=== PATIENT | female | born 1940 | race Caucasian/White ===

== ENCOUNTER 2016-09-02 11:29 | Day surgery (SDC) | payer MEDICARE ==
[~2016-09-02 11:29] MED LIST: ACCU40TA10 PO; CALCCHW25 PO; CHLO50TA PO; DRON400 PO; OSTETAB3 PO; PRAD150C PO; SIMV10TA PO; TAB-TAB PO
[2016-09-02] MEDS ORDERED: CHLOROTHALIDONE PO (12:27)
[2016-09-02] MEDS ORDERED: MULT1TAB84 PO (12:27)
[2016-09-02] MEDS ORDERED: QUIN40TA2 PO (12:27)
[2016-09-02] MEDS ORDERED: VITA100064 PO (12:27)
[2016-09-02] MEDS ORDERED: SIMV10TA PO (12:27)
[2016-09-02] MEDS ORDERED: PRAD150C PO (12:27)
[2016-09-02] MEDS ORDERED: AMIO200T PO (12:27)
--- NOTE | 2016-09-03 10:48 | EKG ---
Date Performed: 09/02/2016 Time Performed: 12:12:02 PTAGE: 75 years EKG: Atrial fibrillation Inferior T wave changes are nonspecific T-wave is no longer flat compar ed to prior tracing Abnormal ECG PREVIOUS TRACING : 10/27/2015 02.53 DOCTOR: Alex Foster Interpretating Date/Time 09/03/2016 10:45:11
--- NOTE | 2016-09-03 10:49 | EKG ---
Date Performed: 09/02/2016 Time Performed: 13:29:16 PTAGE: 75 years EKG: Sinus bradycardia with sinus arrhythmia Anterior T wave changes are nonspecific Compared to the previous tracing, patient no longer in atrial fibrillation Borderline ECG PREVIOUS TRACING : 09/02/2016 12.12 DOCTOR: Alex Foster Interpretating Date/Time 09/03/2016 10:45:27
--- NOTE | 2016-09-05 05:31 | MR ---
cc: YAAKOV MONSIVAIS MD DATE 09/02/2016 INDICATION: Atrial fibrillation. PROCEDURE PERFORMED: DC cardioversion. PROCEDURE: After the patient was sedated by Anesthesia, 200 and 360-joule shocks were delivered that converted the patient into sinus rhythm. The patient remained stable and was discharged home in stable condition. DIAGNOSIS: Successful cardioversion of atrial fibrillation. DISPOSITION: Ms. Hall will continue on her current medical program including atrial fibrillation. I will see her back for followup in our office after discharge. Yaakov Monsivais MD OQ/SSB /1:27 PM /5:25 AM MTDD
== END 2016-09-02 14:23 | disposition home or self-care (01) ==
LOC: HDOC 11:29 → HDIC 11:30 → HDOC 14:23
PROVIDERS: ATTEND Internal Medicine Interventional Cardiology
DX: I48.0 Paroxysmal atrial fibrillation (principal); I49.5 Sick sinus syndrome; I10 Essential (primary) hypertension
CPT/HCPCS: 92960; 93005

== ENCOUNTER 2017-02-24 11:56 | Emergency (ER) | payer MEDICARE ==
[~2017-02-24] VITALS: Ht 162.6 cm; Wt 86.0 kg
[~2017-02-24 11:56] MED LIST changes: -ACCU40TA10 PO; +AMIO200T PO; -CALCCHW25 PO; -CHLO50TA PO; +CHLOROTHALIDONE PO; -DRON400 PO; +MULT1TAB84 PO; -OSTETAB3 PO; +QUIN40TA2 PO; -TAB-TAB PO; +VITA100064 PO
[2017-02-24 11:58] VITALS: BP 155/121; PULSE 136; RESP 24; O2SAT 96
--- NOTE | 2017-02-24 12:06 | PD ---
Physical Exam Time Seen by Provider: 12:04 Narrative 76 y/o female here with one hour of sudden onset lower chest pain that radiates into the back, sharp, resolved a few minutes ago. On pradaxa for atrial fibrillation. On metoprolol. Vital signs reviewed, tachycardic. Seen at triage desk. Awaiting bed placement. Data Data Last Documented VS Vital Signs Date Time Temp Pulse Resp B/P Pulse Ox O2 Delivery O2 Flow Rate FiO2 02/24/17 11:58 136 24 155/121 96 Room Air [facility] Medical Record Reviewed: Yes Supervised Visit with JUANITA: Shukri Deal Feb 24, 2017 12:05
[2017-02-24] MEDS ORDERED: MULTTAB67 PO (12:15)
[2017-02-24] MEDS ORDERED: SODIUM CHLORIDE 0.9% FLUSH 10 ML FLUSH IVF PRN (12:30)
[2017-02-24 12:35] VITALS: BP_SYST 147; BP_SYST 154; BP_DIAS 80; BP_DIAS 92; PULSE 102; RESP 16; O2SAT 98
--- NOTE | 2017-02-24 12:42 | PD ---
HPI Chief Complaint: Chest Pain Time Seen by Provider: 12:42 Travel History International Travel<30 days: No Contact w/Intl Traveler<30days: No Traveled to known affect area: No History of Present Illness HPI 76-year-old female with history of A. fib presents to emergency department for evaluation of acute onset left-sided chest pain. This lasted approximately 15 minutes and resolved on its own. Patient states she took 2 aspirins and contacted her die maker apprentice to advise she come to the emergency department. Patient denies any abscesses or diaphoresis or shortness of breath. No sensation of lightheadedness. States she has never had a pain like this in the past. She is currently having no pain. She has no other symptoms to report. PFSH Past Medical History Hx Anticoagulant Therapy: Yes (pradaxa) Atrial Fibrillation: Yes (X3 CARDIOVERSIONS) Cancer: Yes (ADRIENNE CELL) Cardiovascular Problems: Yes (htn,afib, ablation) Hypertension: Yes Respiratory: Yes (copd) Integumentary: Yes (SKIN CA) Radiation Therapy: Yes Tetanus Vaccination: < 5 Years Influenza Vaccination: Yes ?: Not Past Surgical History Appendectomy: Yes Cholecystectomy: Yes Joint Replacement: Yes (LEFT HIP) Thoracic Surgery: No Other Surgery: Yes Social History Alcohol Use: Yes (RARE) Tobacco Use: No Substance Use: No (PT DENIES) Allergies-Medications (Allergen,Severity, Reaction): Coded Allergies: Amoxicillin (Verified Allergy, Severe, RASH, 02/24/17) Contrast Media (Verified Allergy, Severe, RASH, 02/24/17) Vibramycin (Verified Allergy, Severe, RASH, 02/24/17) Xarelto (Verified Allergy, Severe, swelling, 02/24/17) Reported Meds & Prescriptions Reported Meds & Active Scripts Active Reported Multiple Vitamin 1 Tab 1 Tab PO DAILY Vitamin D (Cholecalciferol) 1,000 Unit Tab 1,000 Units PO DAILY Simvastatin 10 Mg Tab 10 Mg PO DAILY Amiodarone (Amiodarone HCl) 200 Mg Tab 200 Mg PO DAILY Pradaxa (Dabigatran) 150 Mg Cap 150 Mg PO BID Review of Systems Except as stated in HPI: all other systems reviewed are Neg Physical Exam Narrative GENERAL: Well-nourished female patient in no acute distress SKIN: Focused skin assessment warm/dry. HEAD: Atraumatic. Normocephalic. EYES: Pupils equal and round. No scleral icterus. No injection or drainage. ENT: No nasal bleeding or discharge. Mucous membranes pink and moist. NECK: Trachea midline. No JVD. CARDIOVASCULAR: Tachycardic, irregular rhythm No murmur appreciated. RESPIRATORY: No accessory muscle use. Clear to auscultation. Breath sounds equal bilaterally. GASTROINTESTINAL: Abdomen soft, non-tender, nondistended. Hepatic and splenic margins not palpable. MUSCULOSKELETAL: No obvious deformities. No clubbing. No cyanosis. No edema. NEUROLOGICAL: Awake and alert. No obvious cranial nerve deficits. Motor grossly within normal limits. Normal speech. PSYCHIATRIC: Appropriate mood and affect; insight and judgment normal. Data Data Last Documented VS Vital Signs Date Time Temp Pulse Resp B/P Pulse Ox O2 Delivery O2 Flow Rate FiO2 02/24/17 15:10 97.7 87 16 140/86 99 02/24/17 14:26 Room Air Orders Electrocardiogram (02/24/17 12:23) Basic Metabolic Panel (Bmp) (02/24/17 12:23) B-Type Natriuretic Peptide (02/24/17 12:23) Ckmb (Isoenzyme) Profile (02/24/17 12:23) Complete Blood Count With Diff (02/24/17 12:) Magnesium (Mg) (02/24/17 12:23) Prothrombin Time / Inr (Pt) (02/24/17 12:) Act Partial Throm Time (Ptt) (02/24/17 12:23) Troponin I (02/24/17 12:23) Chest, Single Ap (02/24/17 12:23) Ecg Monitoring (02/24/17 12:23) Bilateral Bp Monitoring (02/24/17 12:23) Iv Access Insert/Monitor (02/24/17 12:) Oximetry (02/24/17 12:23) Oxygen Administration (02/24/17 12:23) Sodium Chloride 0.9% Flush (Ns Flush) (02/24/17 12:30) Labs Laboratory Tests Test 02/24/17 12:35 White Blood Count 11.5 TH/MM3 Red Blood Count 4.87 MIL/MM3 Hemoglobin 14.0 GM/DL Hematocrit 42.7 % Mean Corpuscular Volume 87.7 FL Mean Corpuscular Hemoglobin 28.7 PG Mean Corpuscular Hemoglobin 32.7 % Concent Red Cell Distribution Width 12.8 % Platelet Count 288 TH/MM3 Mean Platelet Volume 8.7 FL Neutrophils (%) (Auto) 75.0 % Lymphocytes (%) (Auto) 14.8 % Monocytes (%) (Auto) 8.2 % Eosinophils (%) (Auto) 1.1 % Basophils (%) (Auto) 0.9 % Neutrophils # (Auto) 8.6 TH/MM3 Lymphocytes # (Auto) 1.7 TH/MM3 Monocytes # (Auto) 0.9 TH/MM3 Eosinophils # (Auto) 0.1 TH/MM3 Basophils # (Auto) 0.1 TH/MM3 CBC Comment DIFF FINAL Differential Comment Prothrombin Time 12.0 SEC Prothromb Time International 1.1 RATIO Ratio Activated Partial 36.0 SEC Thromboplast Time Sodium Level 140 MEQ/L Potassium Level 3.4 MEQ/L Chloride Level 101 MEQ/L Carbon Dioxide Level 32.9 MEQ/L Anion Gap 6 MEQ/L Blood Urea Nitrogen 24 MG/DL Creatinine 0.90 MG/DL Estimat Glomerular Filtration 61 ML/MIN Rate Random Glucose 85 MG/DL Calcium Level 9.0 MG/DL Magnesium Level 2.0 MG/DL Total Creatine Kinase 46 U/L Troponin I LESS THAN 0.02 NG/ML MDM Medical Decision Making Medical Screen Exam Complete: Yes Emergency Medical Condition: Yes Medical Record Reviewed: Yes Differential Diagnosis A. fib with RVR versus ACS versus chest wall pain versus pleuritic pain Narrative Course 76-year-old female presents to emergency department for evaluation of acute onset left-sided chest pain, 15 minute duration, that resolved on its own. Patient appears without distress. She is currently pain-free. EKG is reviewed by my attending physician with no ST elevation or depression. Patient is in A. fib. She is on Pradaxa Laboratory Tests Test 02/24/17 12:35 White Blood Count 11.5 TH/MM3 Red Blood Count 4.87 MIL/MM3 Hemoglobin 14.0 GM/DL Hematocrit 42.7 % Mean Corpuscular Volume 87.7 FL Mean Corpuscular Hemoglobin 28.7 PG Mean Corpuscular Hemoglobin 32.7 % Concent Red Cell Distribution Width 12.8 % Platelet Count 288 TH/MM3 Mean Platelet Volume 8.7 FL Neutrophils (%) (Auto) 75.0 % Lymphocytes (%) (Auto) 14.8 % Monocytes (%) (Auto) 8.2 % Eosinophils (%) (Auto) 1.1 % Basophils (%) (Auto) 0.9 % Neutrophils # (Auto) 8.6 TH/MM3 Lymphocytes # (Auto) 1.7 TH/MM3 Monocytes # (Auto) 0.9 TH/MM3 Eosinophils # (Auto) 0.1 TH/MM3 Basophils # (Auto) 0.1 TH/MM3 CBC Comment DIFF FINAL Differential Comment Prothrombin Time 12.0 SEC Prothromb Time International 1.1 RATIO Ratio Activated Partial 36.0 SEC Thromboplast Time Sodium Level 140 MEQ/L Potassium Level 3.4 MEQ/L Chloride Level 101 MEQ/L Carbon Dioxide Level 32.9 MEQ/L Anion Gap 6 MEQ/L Blood Urea Nitrogen 24 MG/DL Creatinine 0.90 MG/DL Estimat Glomerular Filtration 61 ML/MIN Rate Random Glucose 85 MG/DL Calcium Level 9.0 MG/DL Magnesium Level 2.0 MG/DL Total Creatine Kinase 46 U/L Troponin I LESS THAN 0.02 NG/ML I have reviewed the labs and discuss them with Dr. Daily who is covering for Dr. owen. He recommends the patient be discharged home for follow up this week in the office. This is discussed with the patient and she is in agreement with this plan of care. She agrees to return immediately with any acute worsening of symptoms. Diagnosis Primary Impression: Chest pain Qualified Code: R07.9 - Chest pain, unspecified type Additional Impression: A-fib Qualified Code: I48.2 - Chronic atrial fibrillation Referrals: Allison Daily MD Trimming Press Operator Primary Care Physician call for appointment Patient Instructions: Chest Pain (ED), General Instructions Additional Instructions: Contact your die maker apprentice office for follow-up this week. Return immediately with any acute worsening of symptoms Med/Other Pt SpecificInfo: No Change to Meds Disposition: 01 DISCHARGE HOME Condition: Stable Radha Krishnamurthy Feb 24, 2017 12:42
--- NOTE | 2017-02-24 12:47 | RADRPT ---
EXAM DATE/TIME: 02/24/2017 12:20 [facility] COMPARISON: CHEST SINGLE AP, October 26, 2015, 23:21. INDICATIONS : Chest pain, short of breath.. MEDICAL HISTORY : Chronic obstructive pulmonary disease. atrial fibrillation. SURGICAL HISTORY : None. ENCOUNTER: Initial ACUITY: 1 day PAIN SCORE: 8/10 LOCATION: Bilateral chest FINDINGS: Mild basilar infiltrates and slight blunting of the chest phrenic angles indicating small effusions. Ectatic for rotation, cardiac contours are grossly satisfactory with heart size at upper limits of no rmal. CONCLUSION: Small basilar infiltrates and effusions. Ronak Klein MD on February 24, 2017 at 12:45 Board Certified Radiologist. This report was verified electronically.
[2017-02-24 13:21] LABS: AUTOMATED NEUTROPHIL # 8.6 TH/MM3 (1.8-7.7); BASOPHIL # 0.1 TH/MM3 (0-0.2); BASOPHIL % 0.9 % (0.0-2.0); EOSINOPHIL # 0.1 TH/MM3 (0-0.4); EOSINOPHIL % 1.1 % (0.0-4.0); HEMATOCRIT 42.7 % (35.0-46.0); HEMO FLAGS DIFF FINAL; LYMPH % 14.8 % (9.0-44.0); LYMPHOCYTE # 1.7 TH/MM3 (1.0-4.8); MEAN CELL VOLUME 87.7 FL (80.0-100.0); MEAN CORPUSCULAR HEMOGLOBIN 28.7 PG (27.0-34.0); MEAN CORPUSCULAR HGB CONC 32.7 % (32.0-36.0); MONO % 8.2 % (0.0-8.0); PLATELET COUNT 288 TH/MM3 (150-450); RED BLOOD COUNT 4.87 MIL/MM3 (4.00-5.30); RED CELL DISTRIBUTION WIDTH 12.8 % (11.6-17.2); WHITE BLOOD COUNT 11.5 TH/MM3 (4.0-11.0)
[2017-02-24 13:39] LABS: INTERNATIONAL NORMALIZED RATIO 1.1 RATIO
[2017-02-24 13:42] LABS: ANION GAP 6 MEQ/L (5-15); BICARBONATE 32.9 MEQ/L (21.0-32.0); BLOOD UREA NITROGEN 24 MG/DL (7-18); CHLORIDE 101 MEQ/L (98-107); GLOMERULAR FILTRATION RATE 61 ML/MIN (>89); POTASSIUM 3.4 MEQ/L (3.5-5.1); SODIUM (NA) 140 MEQ/L (136-145)
[2017-02-24 13:47] LABS: CREATINE KINASE 46 U/L (26-192)
[2017-02-24 14:26] VITALS: BP 149/88; PULSE 102; RESP 16; TEMP 97.7; O2SAT 98
[2017-02-24 15:10] VITALS: BP 140/86; TEMP 97.7
--- NOTE | 2017-02-25 10:22 | EKG ---
Date Performed: 02/24/2017 Time Performed: 12:19:49 PTAGE: 76 years EKG: ATRIAL FIBRILLATION NONSPECIFIC T-WAVE ABNORMALITY ABNORMAL RHYTHM ECG PREVIOUS TRACING : 09/02/2016 13.29 Atrial fibrillation is new from the prior tracing. DOCTOR: Alex Foster Interpretating Date/Time 02/25/2017 10:21:18
== END 2017-02-24 15:12 | disposition home or self-care (01) ==
LOC: NEPC 11:56
DX: R07.9 Chest pain, unspecified (principal); I48.91 Unspecified atrial fibrillation; I10 Essential (primary) hypertension; J44.9 Chronic obstructive pulmonary disease, unspecified; R94.31 Abnormal electrocardiogram [ECG] [EKG]; Z79.899 Other long term (current) drug therapy; Z88.8 Allergy status to other drugs, medicaments and biological substances
CPT/HCPCS: 71010; 80048; 82550; 83735; 84484; 85025; 85610; 85730; 93005; 99285

== ENCOUNTER → 2017-08-05 | Outpatient (CLI) | payer MEDICARE ==
[~2017-08-05] MED LIST changes: -CHLOROTHALIDONE PO; -MULT1TAB84 PO; +MULTTAB67 PO; -QUIN40TA2 PO
--- NOTE | 2017-08-05 12:01 | RADRPT ---
EXAM DATE/TIME: 08/05/2017 11:41 This report includes an Addendum and supersedes previous reports for this exam. [facility] COMPARISON: No previous studies available for comparison. INDICATIONS : Cough, dyspnea and wheezing x 2 months. RADIATION DOSE: 3.94 CTDIvol (mGy) MEDICAL HISTORY : Cardiovascular disease. SURGICAL HISTORY : None. ENCOUNTER: Initial ACUITY: 2 months PAIN SCALE: 0/10 LOCATION: Bilateral chest TECHNIQUE: Volumetric scanning of the chest was performed. Using automated exposure control and adjustment of t he mA and/or kV according to patient size, radiation dose was kept as low as reasonably achievable to obtain optimal diagnostic quality images. DICOM format image data is available electronically for r eview and comparison. Follow-up recommendations for detected pulmonary nodules are based at a minimum on nodule size and pa tient risk factors according to Fleischner Society Guidelines. FINDINGS: LUNGS: Multiple small pulmonary nodules are seen scattered throughout the right middle lobe and right lower lobe. These measure between 3 and 5 mm in size. No dominant or worrisome appearing nodule. Linear sca rring is seen within the lingula as well as the right middle lobe. No acute infiltrate. No appreciabl e bronchiectasis. PLEURAE: There is no pleural thickening or pleural effusion. MEDIASTINUM: The heart is mildly enlarged. No pericardial effusion. Mild coronary artery atherosclerotic calcifica tions. Aorta and pulmonary arteries are normal in caliber. No gross adenopathy on this unenhanced robert dy. AXILLAE: There is mild smooth thickening of the skin involving the left breast. The underlying adipose tissue is clear. No axillary adenopathy. MUSCULOSKELETAL: Scoliotic curvature with a degenerative spine. MISCELLANEOUS: There is a small hiatal hernia. CONCLUSION: 1. Mild cardiomegaly. 2. Multiple small scattered smooth pulmonary nodules involving the right middle lobe and right lower lobe. There is no dominant nodule. Current guidelines suggest a repeat CT of the thorax in 3-6 months to document stability. 3. Scoliotic curvature. 4. Smooth mild skin thickening involving the left breast. This could be post therapeutic in nature. I cannot exclude an acute inflammatory process. Direct visualization is suggested. Suresh Cabrales Jr., MD on August 05, 2017 at 11:52 Board Certified Radiologist. This report was verified electronically. ADDENDUM: Comparison has been made to a PET/CT from [facility] from July 01, 2015. The larger nodul es within the right lung base were present on that exam and are clearly benign granulomas. The smalle r nodules are not discernible. There is breathing motion artifact on the prior PET/CT and there are t echnical differences between the studies as well. Therefore the lack of visualization of the smaller nodules may simply be technical in nature. I would continue to suggest a followup CT scan for continu ed followup. Suresh Cabrales Jr., MD on August 06, 2017 at 16:14 Board Certified Radiologist. This report was verified electronically.
--- NOTE | 2017-08-12 10:42 | RSPPFT ---
DATE OF PROCEDURE: 08/05/17 COMMENTS: Spirometry demonstrates an FEV1 of 1.1 at 58% of predicted, FVC of 2.2 at 83%, FEV1/FVC ratio at 51%. The FEF 25-75 is 32% of predicted. Post-bronchodilator study demonstrated significant improvements in all the spirometric values. Lung volumes demonstrated a raised RV/TLC ratio indicating hyperinflation and air trapping. Diffusion capacity is severely reduced. Flow volume loops are suggestive of severe obstruction. IMPRESSION: 1. Moderately severe obstructive disease. 2. Significant response to use of bronchodilator indicating reversibility. 3. Severe loss in diffusion capacity. .
== END ==
LOC: HRSP 10:11
DX: R05 Cough (principal); R06.00 Dyspnea, unspecified; I10 Essential (primary) hypertension; R06.2 Wheezing
CPT/HCPCS: 71250; 94060; 94726; 94729